=== PATIENT | female | born 1990 | race Caucasian/White ===

== ENCOUNTER 2024-04-08 18:57 | Emergency (ER) | payer MEDICAID, SELFPAY ==
[2024-04-08 18:59] VITALS: BP 131/83; PULSE 80; RESP 16; TEMP 36.8; O2SAT 98; BMI 28.8
[2024-04-08 21:35] LABS: Mucous, Urine 0 SEEN /hpf (<or=2+)
[2024-04-08 21:38] LABS: Absolute Lymphocyte Count 1.75 X10^3/uL (0.83-4.51); Absolute Neutrophil Count 3.6 X10^3/uL (2.0-7.7); Basophil# 0.05 X10^3/uL; Basophil% 0.8 % (0-1); Color, Urine Red (Yellow); Eosinophil# 0.35 X10^3/uL; Eosinophils% 5.4 % (0-5); Glucose, Dipstick Normal (Normal); Hematocrit 35.9 % (37-47); Ketone-Dipstick Negative (Negative); Leukocyte Esterase-Dipstick 500 /ul (Negative); Lymphocyte # 1.75 X10^3/ul (0.83-4.51); Lymphocyte % 27.1 % (19-41); Mean Corp Hgb Conc 33.4 g/dL (32-36); Mean Corpuscular Hgb 29.1 pg (27.0-32.0); Mean Corpuscular Volume 86.9 fL (81-99); Monocyte# 0.66 X10^3/uL; Monocyte% 10.2 % (0-10); NRBC Flagged by Analyzer 0 % (0-5); Neutrophil # 3.61 X10^3/uL (2.7-7.7); Nitrite-Dipstick Positive (Negative); Occult Blood-Urine 250 /ul (Negative); Platelet Count 349 K/mm3 (150-450); Protein-Dipstick 100 mg/dl (Negative); RBC Distribution Width CV 15.3 % (11.6-14.6); Red Blood Count 4.13 M/mm3 (4.2-5.4); Specific Gravity, Urine 1.015 (1.002-1.030); Urine Bilirubin Dipstick Negative (Negative); Urine Clarity Cloudy (Clear); Urine Urobilinogen Normal (Normal); White Blood Count 6.5 K/mm3 (4.4-11.0)
[2024-04-08 21:45] LABS: Bacteria 1+ /hpf (None Seen); Red Blood Cells-Urine 25-50 SEEN /hpf (0-5); Squamous Epithelial Cells - UA 5-10 SEEN /hpf (5-10); White Blood Cells 25-50 SEEN /hpf (0-5)
[2024-04-08 21:50] LABS: Internal QC Validated? YES +Cl - CLEAR BKGD
[2024-04-08 21:52] LABS: Pregnancy, Serum, hCG Quali. POSITIVE Negative
[2024-04-08 21:55] LABS: ALB/GLOB Ratio 0.9 RATIO (0.9-2.4); AST(SGOT) 8 U/L (15-37); Alanine Aminotransfer ALT/SGPT 15 U/L (13-56); Albumin, Serum 3.4 g/dL (3.2-5.0); Alkaline Phosphatase 71 U/L (45-117); Anion Gap 4 (5-15); BUN 7 mg/dL (7-18); BUN/Creat Ratio 11.7 RATIO (10-20); Chloride 107 mmol/L (98-107); EST Glomerular Filtration Rate 122 mL/min (>60); Est Glom Filt Rate - Afr Amer 148 mL/min (>60); Estimated Creatinine Clearance 123.45 ml/min; Globulin 3.7 g/dL (2.2-4.2); Glucose 95 mg/dL (74-106); Potassium 3.6 mmol/L (3.5-5.1); Protein, Total 7.1 g/dL (6.4-8.2); Sodium Level 138 mmol/L (136-145)
[2024-04-08 22:00] VITALS: BP 113/75; PULSE 74
[2024-04-08 22:16] LABS: hCG Titer Quant., Serum 221 mIU/mL (1-3)
--- NOTE | 2024-04-08 22:27 | US_ITS ---
INDICATION: bleeding and pain EXAMINATION: Ultrasound US OB Transvaginal TECHNIQUE: Transvaginal (for optimal evaluation of the adnexa) pelvic ultrasound was performed. Grayscale, spectral waveform, and color flow Doppler evaluation of the adnexa. COMPARISON: None. LMP: [02/28/2024 Beta-hC FINDINGS: UTERUS: 9.1 x 6.8 x 4.7 cm. RIGHT OVARY: 2.8 x 2.0 x 1.4 cm. Normal. LEFT OVARY: 2.8 x 2.2 x 1.7 cm. Normal. FREE FLUID: None. INTRAUTERINE GESTATIONAL SAC(s) (size/shape): None YOLK SAC: Not identified POLE: Not identified. HEART MOTION: Not detected. US/Transvaginal w/Preg US IMPRESSION: No demonstration of intrauterine . Findings represent of unknown location and ectopic cannot be excluded. In a hemodynamically stable patient, a follow-up sonographic examination in 7-10 days in combination with serial beta hCG levels is recommended. Electronically Signed: Prasanth Bansal MD at 23:35 EDT ,
[2024-04-09] VITALS: BP 114/70; PULSE 65; RESP 14; TEMP 37.1; O2SAT 99
--- NOTE | 2024-04-09 00:29 | EDS_ITS ---
HPI HPI - Female History of Present Illness Chief Complaint: Vag Bld, Preg Informant: patient and spouse/S.O. Narrative Narrative: Patient is a G3, P2 female approximately 6 weeks . She states that she has developed some abdominal cramping over the last 1 to 2 days and since that time has been having slow progression of vaginal bleeding. She denies any recent trauma any dysuria or vaginal discharge. She states there is no history of bleeding disorder or blood thinner use. However she did not have any of these changes with her previous 2 pregnancies and therefore presents for evaluation [facility] Home Medications ?Medication ?Instructions ?Recorded ?Last Taken ?Type vit no.95-ferrous 1 tab PO DAILY 04/08/24 Unknown History fumarate 28 mg-folic acid 800 mcg tablet () Allergy/AdvReac Type Severity Reaction Status Date / Time No Known Allergies Allergy Verified 04/08/24 18:59 Social History Smoking Status: Never smoker ROS ROS ED Constitutional Constitutional ED: Denies chills or fever(s) Eyes Eyes: Denies blurry vision or change in vision ENT ENT ED: Denies rhinorrhea or sore throat Cardiovascular Cardiovascular: Denies chest pain Respiratory/Chest Respiratory/Chest: Denies cough or dyspnea Gastrointestinal Gastrointestinal: Reports abdominal pain; Denies diarrhea, nausea or vomiting Genitourinary Genitourinary ED: Reports other Details: Positive vaginal bleeding ; Denies dysuria Musculoskeletal Musculoskeletal: Denies myalgias Integumentary Denies rash Neurologic Neurologic: Denies headache(s) Hematologic/Lymphatic Hematologic/Lymphatic: Denies easy bleeding or easy bruising EXAM Physical Exam Const Vital Signs: 04/08/24 18:59 04/08/24 22:00 04/09/24 00:00 Temperature 98.2 F 98.7 F Temperature Source Oral Pulse Rate 80 74 65 Respiratory Rate 16 14 Blood Pressure 131/83 H 113/75 114/70 Blood Pressure Mean 99 87 84 Pulse Ox 98 99 Oxygen Delivery Method Room Air Positive well nourished and well developed General Appearance ED: well developed; Negative for pallor HEENT HEENT Narrative: Normocephalic atraumatic Eyes PERRL and EOMs intact bilaterally General Eye ED: Negative for pale conjunctiva Neck supple Resp normal respiratory effort and clear to auscultation bilaterally Cardio regular rate and regular rhythm Rate: other Other Details: Regular rate and rhythm without murmurs rubs or gallops Radial and carotid pulses are equal and symmetric GI soft to palpation, non-distended and no masses GI Narrative: There is slight pain with palpation in the suprapubic region Otherwise no voluntary guarding or rigidity or pulsatile mass Auscultation: normoactive bowel sounds Palpation: soft Back/Spine no CVA tenderness Extremity normal to inspection and full ROM Neuro oriented x3, CN's II-XII intact bilaterally and no sensory deficits noted Sensorium / Orientation: alert Motor Exam: strength 5/5 throughout Psych mental status grossly normal Skin no rashes or lesions noted and no wounds General Skin Exam: Negative for pallor MDM MDM MDM Narrative Medical decision making narrative: Patient arrived to the ER with stable vitals and reported mild suprapubic pain/cramping with small amount of vaginal bleeding. With differential diagnosis being spontaneous miscarriage versus threatened miscarriage versus ectopic basic labs were obtained and a transvaginal ultrasound was ordered. Blood work revealed no signs of acute blood loss anemia or thrombocytopenia. Her quantitative hCG value was low at 221 which would go against any internal fetus noted on ultrasound. The transvaginal ultrasound revealed no signs of internal or ectopic . This correlates with her low hCG value that no fetus was visualized. As her pain is minimal her laboratory studies revealed no clinically significant findings I do not feel that there is need for emergent OB consultation. Patient can have recurrent hCG values obtained to track for threatened versus spontaneous miscarriage. She was informed of this and does agree with the plan of care. Therefore at this time as she is not requiring a blood transfusion as there is no acute blood loss anemia and she does not have physical exam or imaging findings consistent with ectopic she can be discharged and follow-up on an outpatient basis. History & Record Review Discussion w/independent historian: Patient and Significant other Lab Data Attestation: I reviewed the patient's lab results. Labs: Laboratory Results - last 24 hr 04/08/24 21:23 WBC 6.5 RBC 4.13 L Hgb 12.0 Hct 35.9 L MCV 86.9 MCH 29.1 MCHC 33.4 RDW Std Deviation 49.0 H RDW Coeff of Ada 15.3 H Plt Count 349 MPV 9.0 Immature Gran % (Auto) 0.500 Neut % (Auto) 56.0 Lymph % (Auto) 27.1 [place] % (Auto) 10.2 H Eos % (Auto) 5.4 H Baso % (Auto) 0.8 Absolute Neuts (auto) 3.6 Absolute Lymphs (auto) 1.75 Nucleated RBC % 0 Sodium 138 Potassium 3.6 Chloride 107 Carbon Dioxide 28.0 Anion Gap 4 L BUN 7 Creatinine 0.60 Estim Creat Clear Calc 123.45 Est GFR (MDRD) Af Amer 148 Est GFR (MDRD) Non-Af 122 BUN/Creatinine Ratio 11.7 Glucose 95 Calcium 9.0 Total Bilirubin 0.20 AST 8 L ALT 15 Alkaline Phosphatase 71 Total Protein 7.1 Albumin 3.4 Globulin 3.7 Albumin/Globulin Ratio 0.9 HCG, Quant 221 H Serum , Qual POSITIVE Urine Color Red Urine Clarity Cloudy Urine pH 6.0 Ur Specific Banks 1.015 Urine Protein 100 H Urine Glucose (UA) Normal Urine Ketones Negative Urine Occult Blood 250 H Urine Nitrite Positive H Urine Bilirubin Negative Urine Urobilinogen Normal Ur Leukocyte Esterase 500 H Urine RBC 25-50 SEEN Urine WBC 25-50 SEEN Ur Squamous Epith Cells 5-10 SEEN Urine Bacteria 1+ Urine Mucus 0 SEEN Radiography Diagnostic Testing: Clinical Impression(s) from Imaging Studies Obstetrics Ultrasound 04/08/24 22:27 IMPRESSION: No demonstration of intrauterine . Findings represent of unknown location and ectopic cannot be excluded. In a hemodynamically stable patient, a follow-up sonographic examination in 7-10 days in combination with serial beta hCG levels is recommended. Electronically Signed: Prasanth Bansal MD at 23:35 EDT Reading Location ID and State: [address] [place] [address] Tel , Service support , Discharge Plan Triage Chief Complaint: Vag Bld, Preg ED Provider: Srinivas Johnson Dx/Rx/DC Orders Clinical Impression: Threatened miscarriage in early Instructions: Understanding Miscarriage ... Prescriptions: No Action PNV cmb#95-ferrous fumarate-FA [] 28 mg iron- 800 mcg tablet 1 tab PO DAILY Primary Care Provider: Care Physician,No Primary Referrals: Floyd Arnold MD [Med Staff - Active Staff] - Care Physician,No Primary [Primary Care Provider] - Activity Restrictions/Additional Instructions: Your marker was 221 today. Contact the [facility] because you will need to have the value redrawn on afternoon or Sunday morning. If you have any further concerns or worsening symptoms please return to the ER for repeat evaluation Print Language: Guyanese Disposition Disposition: Home, Self Care Discharge Date/Time: 04/09/24 00:48
== END 2024-04-09 00:48 | disposition home or self-care (01) ==
PROVIDERS: Emergency Provider Emergency Medicine; Visit Provider Emergency Medicine
DX: O20.0 Threatened abortion (principal); Z3A.01 Less than 8 weeks gestation of pregnancy
CPT/HCPCS: 76817; 80053; 81001; 84702; 84703; 85025; 99283